=== PATIENT | male | born 1965 | race Caucasian/White ===

== ENCOUNTER 2016-03-28 06:48 | Emergency (ER) | payer MEDICAID ==
[~2016-03-28] VITALS: Ht 182.9 cm; Wt 86.2 kg
[~2016-03-28 06:48] MED LIST: EFAV1TAB PO; GABA600T PO
[2016-03-28 06:57] VITALS: BP 107/77
== END 2016-03-28 07:55 | disposition home or self-care (01) ==
LOC: ER 06:50
DX: Z45.2 Encounter for adjustment and management of vascular access device (principal); M65.842 Other synovitis and tenosynovitis, left hand; F10.20 Alcohol dependence, uncomplicated; F17.210 Nicotine dependence, cigarettes, uncomplicated
CPT/HCPCS: 71010; 99283; A4606; Z7610

== ENCOUNTER 2016-04-11 03:08 | Emergency (ER) | payer MEDICAID ==
[~2016-04-11] VITALS: Ht 182.9 cm; Wt 86.2 kg
[2016-04-11] MEDS ORDERED: METOCLOPRAMIDE HCL 10 MG/2 ML VIAL ONE (03:50)
[2016-04-11] MEDS ORDERED: diphenhydrAMINE HCL 50 MG/ML VIAL ONE (03:50)
[2016-04-11] MEDS ORDERED: METOCLOPRAMIDE HCL 10 MG/2 ML VIAL IM ONE (04:00)
[2016-04-11] MEDS ORDERED: diphenhydrAMINE HCL 50 MG/ML VIAL IM ONE (04:00)
[2016-04-11 04:53] VITALS: BP 137/73
[2016-04-11] MEDS ORDERED: ACETAMINOPHEN 325 MG TABLET PO ONE (05:00)
== END 2016-04-11 04:54 | disposition home or self-care (01) ==
LOC: ER 03:11
DX: S80.12XA Contusion of left lower leg, initial encounter (principal); F17.200 Nicotine dependence, unspecified, uncomplicated; B19.20 Unspecified viral hepatitis C without hepatic coma; W22.8XXA Striking against or struck by other objects, initial encounter; Y93.55 Activity, bike riding; Y92.89 Other specified places as the place of occurrence of the external cause; Y99.9 Unspecified external cause status
CPT/HCPCS: 70450; 96372 ×2; 99284; A4606; J1200; J2765; Z7610

== ENCOUNTER 2016-07-08 03:37 | Emergency (ER) | payer OTHER, MEDICAID ==
[~2016-07-08] VITALS: Ht 172.7 cm; Wt 68.0 kg
--- NOTE | 2016-07-08 03:45 | NUR ---
PT [facility] AND [employer] PER [employer] PT "HIT HEAD INTENTIONALLY ON METAL WHILE IN CUSTODY" ACERATION; DENIES KO. PT AOX4 RR EVEN AND UNLABORED. NO SOB NOTED. NAD NOTED. NO NVD AT THIS TIME. PT NOT DIAPHORETIC. PT WAITING FOR MD MILLARD.
--- NOTE | 2016-07-08 03:59 | NUR ---
PT REFUSESD TDAP, PT STATES HE RECEIVED LAST TDAP LAST YEAR.
[2016-07-08] MEDS ORDERED: TDAP [DIPH/PERTUSSIS/TET] 0.5 ML VIAL IM ONE (04:00)
--- NOTE | 2016-07-08 04:18 | NUR ---
PT TO CT.
--- NOTE | 2016-07-08 04:28 | NUR ---
DR. SCHULTE AT BEDSIDE FOR LAC REPAIR. BS NOTED 109. AWARE.
--- NOTE | 2016-07-08 04:52 | NUR ---
Patient discharged to home in stable condition. Written and verbal after care instructions given. Patient verbalizes understanding of instruction. ambulatory with a steady gait. ok to book per md. pt d/c in [employer] custody.
[2016-07-08 04:54] VITALS: BP 138/68
== END 2016-07-08 04:55 ==
LOC: ER 03:39
DX: S01.81XA Laceration without foreign body of other part of head, initial encounter (principal); S09.90XA Unspecified injury of head, initial encounter; F10.129 Alcohol abuse with intoxication, unspecified; B19.20 Unspecified viral hepatitis C without hepatic coma; F17.200 Nicotine dependence, unspecified, uncomplicated; R73.09 Other abnormal glucose; W22.8XXA Striking against or struck by other objects, initial encounter; Y93.89 Activity, other specified; Y92.89 Other specified places as the place of occurrence of the external cause; Y99.8 Other external cause status
CPT/HCPCS: 12011; 70450; 82962; 99284; A4606; Z7610

== ENCOUNTER 2016-08-13 21:14 | Emergency (ER) | payer OTHER, MEDICAID ==
[~2016-08-13] VITALS: Ht 177.8 cm; Wt 72.6 kg
--- NOTE | 2016-08-13 21:29 | NUR ---
PT BIB [employer] C/O NON-PRODUCTIVE COUGH. NAD NOTED. RESP EVEN UNLABORED. VSS. SKIN WARM NONDIAPHORETIC. IN ER BED 14.
[2016-08-13] MEDS ORDERED: MIRTAZAPINE 15 MG TABLET ONE (21:40)
--- NOTE | 2016-08-13 21:52 | NUR ---
Patient discharged to police custody in stable condition. Written and verbal after care instructions given. Patient verbalizes understanding of instruction.
[2016-08-13 21:53] VITALS: BP 125/86
[2016-08-13] MEDS ORDERED: MIRTAZAPINE 15 MG TABLET PO ONE (22:00)
== END 2016-08-13 21:53 | disposition home or self-care (01) ==
LOC: ER 21:15
DX: Z76.0 Encounter for issue of repeat prescription (principal); Z00.8 Encounter for other general examination; B19.20 Unspecified viral hepatitis C without hepatic coma; F31.9 Bipolar disorder, unspecified; F17.200 Nicotine dependence, unspecified, uncomplicated; Z86.19 Personal history of other infectious and parasitic diseases; Z98.890 Other specified postprocedural states
CPT/HCPCS: A4606; Z7610

== ENCOUNTER 2018-06-28 19:48 | Emergency (ER) | payer MEDICAID, OTHER ==
[~2018-06-28] VITALS: Ht 182.9 cm; Wt 81.6 kg
[2018-06-28 20:09] VITALS: BP 129/75
== END 2018-06-28 20:09 | disposition home or self-care (01) ==
LOC: ER 19:49
DX: S60.022A Contusion of left index finger without damage to nail, initial encounter (principal); S61.501A Unspecified open wound of right wrist, initial encounter; F17.200 Nicotine dependence, unspecified, uncomplicated; Z59.0 Homelessness; Z79.899 Other long term (current) drug therapy; W57.XXXA Bitten or stung by nonvenomous insect and other nonvenomous arthropods, initial encounter; Y93.89 Activity, other specified; Y92.89 Other specified places as the place of occurrence of the external cause; Y99.8 Other external cause status

== ENCOUNTER 2019-04-15 04:49 | Emergency (ER) | payer MEDICAID, OTHER ==
[~2019-04-15] VITALS: Ht 182.9 cm; Wt 81.6 kg
[2019-04-15] MEDS ORDERED: KETOROLAC TROMETHAMINE 15 MG/ML VIAL ONE (05:11)
[2019-04-15 05:14] LABS: BASOPHILS % (AUTO) 0.6 % (0.0-2.0); EOSINOPHILS % (AUTO) 1.8 % (0.0-6.0); HEMATOCRIT 49 % (39-51); HEMOGLOBIN 16.2 g/dL (13.5-17.5); LYMPHOCYTES # (AUTO) 1.9 /CMM (0.8-4.8); LYMPHOCYTES % (AUTO) 35.8 % (20.0-44.0); MEAN CORPUSCULAR HGB CONC 33 g/dl (31.0-36.0); MEAN CORPUSCULAR VOLUME 92 fL (80-96); MONOCYTES # (AUTO) 0.5 /CMM (0.1-1.30); MONOCYTES % (AUTO) 9.1 % (2.0-12.0); NEUTROPHILS # (AUTO) 2.8 /CMM (1.8-8.9); NEUTROPHILS % (AUTO) 52.7 % (43.0-81.0); PLATELET COUNT (AUTO) 247 /CMM (150-450); WHITE BLOOD COUNT (AUTO) 5.4 K/uL (4.3-11.0)
--- NOTE | 2019-04-15 05:17 | NUR ---
PT CAME IN FOR L SIDED FLANK PAIN. PAIN UPON PERCUSSION ON L COSTOVERTEBRAL AREA. +NAUSEA - VOMITING. PT AAOX4,RR EVEN AND UNLABORED ON RA W/ NAD NOTED. PT CONNECTED TO THE MONITOR AND POX
[2019-04-15 05:19] LABS: APPEARANCE,URINE Clear (CLEAR); BILIRUBIN,URINE Negative (NEGATIVE); BLOOD, URINE Negative Ery/uL (NEGATIVE); COLOR,URINE Yellow (YELLOW); KETONES,URINE Negative (NEGATIVE); LEUKOCYTE ESTERASE ,URINE Negative (NEGATIVE); NITRITE, URINE Negative (NEGATIVE); PROTEIN,URINE Negative (NEGATIVE); UGLUCOSE Negative (NEGATIVE)
[2019-04-15 05:21] LABS: CALCIUM, SERUM 9.5 mg/dL (8.5-10.1); CREATININE 0.9 mg/dL (0.6-1.3); POTASSIUM 4.6 mmol/L (3.5-5.1)
[2019-04-15 05:28] LABS: BACTERIA,URINE None seen /HPF (None Seen); MUCUS,URINE Few /LPF (None Seen); RBC,URINE 0-2 /HPF (0-2); SQUAMOUS EPITHELIAL CELL,UR Rare /HPF (None Seen)
[2019-04-15] MEDS ORDERED: IV NS 0.9% 1,000 ML BAG IV ONE (05:30)
[2019-04-15] MEDS ORDERED: KETOROLAC TROMETHAMINE INJ 30 MG/ML VIAL IV ONE (05:30)
[2019-04-15] MEDS ORDERED: CT SWABBABLE VALVE TRANS SET 1 EA INFUS.SET MC ONE (06:01)
[2019-04-15] MEDS ORDERED: IV NS 0.9% 250 ML IV ONE (06:01)
[2019-04-15] MEDS ORDERED: IOHEXOL-300 100 ML VIAL IV ONE (06:01)
--- NOTE | 2019-04-15 06:50 | NUR ---
Patient discharged to home in stable condition. Written and verbal after care instructions given. Patient verbalizes understanding of instruction.IV removed. Catheter intact and site benign. Pressure and 4x4 applied to site. No bleeding noted.
[2019-04-15 06:51] VITALS: BP 121/84
== END 2019-04-15 06:51 | disposition home or self-care (01) ==
LOC: ER 04:56
DX: K52.9 Noninfective gastroenteritis and colitis, unspecified (principal); K59.00 Constipation, unspecified; N28.1 Cyst of kidney, acquired; M54.9 Dorsalgia, unspecified; E88.89 Other specified metabolic disorders; F17.210 Nicotine dependence, cigarettes, uncomplicated; Z86.19 Personal history of other infectious and parasitic diseases; Z98.890 Other specified postprocedural states; Z60.2 Problems related to living alone; Z79.899 Other long term (current) drug therapy
CPT/HCPCS: 36415; 74177; 80048; 81001; 85025; 96361; 96374; 99285; 99406; J1885; J7050; Q9967; 81000-TC